=== PATIENT | female | born 1975 | race Native Hawaiian/Other Pacific Islander ===

== ENCOUNTER 2018-09-12 14:00 | Emergency (ER) | payer OTHER ==
[~2018-09-12] VITALS: Ht 144.8 cm; Wt 98.9 kg
[2018-09-12 14:50] LABS: PLATELET COUNT 360 K/uL (152-353)
[2018-09-12 17:35] VITALS: BP 132/87; TEMP 97.9
== END 2018-09-12 17:35 | disposition home or self-care (01) ==
LOC: ED 14:00
PROVIDERS: Student in an Organized Health Care Education/Training Program
DX: N93.8 Other specified abnormal uterine and vaginal bleeding (principal); D64.9 Anemia, unspecified
CPT/HCPCS: 36415; 80048; 81000; 81025; 83735; 85027; 87210; 87490; 87590; 96360; 96365; 96374; 96375; 99284; J2405

== ENCOUNTER 2019-12-15 10:27 | Emergency (ER) | payer OTHER ==
[~2019-12-15] VITALS: Ht 144.8 cm; Wt 98.9 kg
[2019-12-15 11:45] LABS: PLATELET COUNT 313 K/uL (152-353)
[2019-12-15 11:56] LABS: POTASSIUM 3.8 mmol/L (3.6-5.2)
[2019-12-15 12:58] VITALS: BP 131/70; TEMP 98.6
== END 2019-12-15 12:58 | disposition home or self-care (01) ==
LOC: ED 10:27
PROVIDERS: Family Medicine
DX: N93.8 Other specified abnormal uterine and vaginal bleeding (principal)
CPT/HCPCS: 80053; 81000; 81025; 85027; 99283

== ENCOUNTER 2022-03-11 08:40 | Emergency (ER) | payer OTHER ==
[~2022-03-11] VITALS: Ht 144.8 cm; Wt 98.9 kg
[2022-03-11 08:44] VITALS: BP 158/94; TEMP 97.5
== END 2022-03-11 09:43 | disposition home or self-care (01) ==
LOC: ED 08:40
PROC: 0HQGXZZ Repair Left Hand Skin, External Approach (ICD-10-PCS; principal; 2022-03-11)
DX: S61.213A Laceration without foreign body of left middle finger without damage to nail, initial encounter (principal); W26.0XXA Contact with knife, initial encounter; Y92.89 Other specified places as the place of occurrence of the external cause
CPT/HCPCS: 90715; 96372; 99283; J2001

== ENCOUNTER 2022-03-19 13:37 | Emergency (ER) | payer OTHER ==
[~2022-03-19] VITALS: Ht 144.8 cm; Wt 89.8 kg
[2022-03-19 13:44] VITALS: BP 149/89; TEMP 98.6
== END 2022-03-19 14:05 | disposition home or self-care (01) ==
LOC: ED 13:37
DX: S61.213D Laceration without foreign body of left middle finger without damage to nail, subsequent encounter (principal); Z48.02 Encounter for removal of sutures; X58.XXXD Exposure to other specified factors, subsequent encounter; Y92.89 Other specified places as the place of occurrence of the external cause

== ENCOUNTER 2022-05-18 04:11 | Emergency (ER) | payer OTHER ==
[~2022-05-18] VITALS: Ht 144.8 cm; Wt 91.2 kg
[2022-05-18 04:15] VITALS: TEMP 98.3
[2022-05-18 05:48] LABS: PLATELET COUNT 402 K/uL (152-353)
[2022-05-18 07:24] VITALS: BP 103/73
== END 2022-05-18 07:25 | disposition home or self-care (01) ==
LOC: ED 04:11
PROVIDERS: Family Medicine
DX: K52.89 Other specified noninfective gastroenteritis and colitis (principal); D64.89 Other specified anemias; E86.0 Dehydration; E03.8 Other specified hypothyroidism
CPT/HCPCS: 36415; 80053; 80307; 81002; 82150; 82550; 83690; 84443; 85027; 96360; 96361; 96374; 96375; 99283; 99284; J1885; J2405

== ENCOUNTER 2022-10-10 13:24 | Emergency (ER) | payer OTHER ==
[~2022-10-10] VITALS: Ht 144.8 cm; Wt 88.0 kg
[2022-10-10 13:24] VITALS: TEMP 98.5
[2022-10-10 13:51] LABS: POTASSIUM 4.3 mmol/L (3.6-5.2)
[2022-10-10 13:52] LABS: PLATELET COUNT 380 K/uL (152-353)
[2022-10-10 18:10] VITALS: BP 111/72
== END 2022-10-10 18:21 | disposition short-term general hospital (02) ==
LOC: ED 13:24
PROVIDERS: Family Medicine
DX: T50.992A Poisoning by other drugs, medicaments and biological substances, intentional self-harm, initial encounter (principal); M54.9 Dorsalgia, unspecified; J96.90 Respiratory failure, unspecified, unspecified whether with hypoxia or hypercapnia; I95.9 Hypotension, unspecified; E66.9 Obesity, unspecified; F17.210 Nicotine dependence, cigarettes, uncomplicated
CPT/HCPCS: 36600; 80053; 80307; 81000; 82550; 82805; 83605; 83735; 83880; 84484; 85027; 93005; 96361; 96365; 96375; 96376; 99285; J2310; J2543